=== PATIENT | male | born 1995 | race Native Hawaiian/Other Pacific Islander ===

== ENCOUNTER 2018-09-14 21:47 | Emergency (ER) | payer OTHER ==
[2018-09-14 22:17] LABS: Basophils # (Auto) 0.1 K/mm3 (0.0-0.1); Basophils % (Auto) 1.3 % (0.0-1.8); Eosinophils # (Auto) 0.3 K/mm3 (0.0-0.4); Eosinophils % (Auto) 2.8 % (0.0-4.3); Hematocrit 42.8 % (35.5-45.6); Hemoglobin 14.9 gm/dl (11.8-15.2); Lymphocytes # (Auto) 3.9 K/mm3 (1.2-5.4); Mean Corpuscular HGB Conc 35 % (32-34); Mean Corpuscular Volume 90 fl (84-94); Monocytes # (Auto) 0.6 K/mm3 (0.0-0.8); Monocytes % (Auto) 6.3 % (0.0-7.3); Platelet Count 285 K/mm3 (140-440); Red Blood Count 4.75 M/mm3 (3.65-5.03); Red Cell Distribution Width 13.4 % (13.2-15.2)
[2018-09-14 22:25] LABS: BUN/Creatinine Ratio 16; Blood Urea Nitrogen 13 mg/dL (9-20); Calcium 10.1 mg/dL (8.4-10.2); Hemolysis Index 6
[2018-09-14 22:36] LABS: Bilirubin,Urine NEG (Negative); Blood,Urine NEG (Negative); Color,Urine Yellow (Yellow); Mucus,Urine FEW /HPF; Protein,Urine <15 mg/dL mg/dL (Negative); Urobilinogen,Urine < 2.0 mg/dL (<2.0); WBC,Urine < 1.0 /HPF (0.0-6.0)
[2018-09-15] MEDS ORDERED: ZOFRAN ODT PO ONE (00:21)
[2018-09-15] MEDS ORDERED: TORADOL IM ONE (00:21)
--- NOTE | 2018-09-15 00:21 | Emergency Department Report ---
ED Abdominal Pain HPI - General Chief Complaint: Abdominal Pain Stated Complaint: HERNIA/NAUSEA/HEADACHE Time Seen by Provider: 09/15/18 00:15 Source: patient Mode of arrival: Ambulatory Limitations: No Limitations - History of Present Illness Initial Comments: Pt is a 23 yo male who presents to the ED with c/o LLQ abdominal pain and left flank pain that began in July 2018. The patient states he has had diarrhea for the last two weeks. He states he began having N/V today. The patient denies any fever, urinary sx, hematochezia, hematemesis. He is able to tolerate PO intake. He has not seen anyone for this abdominal pain. He has taken aleve for t he pain with some relief. Severity scale (0 -10): 6 - Related Data Previous Rx's Medication Instructions Recorded Last Taken Type Dicyclomine [Bentyl] 20 mg PO QID #20 tablet 09/15/18 Unknown Rx Ondansetron [Zofran Odt] 4 mg PO Q8HR #10 tab.rapdis 09/15/18 Unknown Rx Allergies Allergy/AdvReac Type Severity Reaction Status Date / Time No Known Allergies Allergy Unverified 09/14/18 21:49 ED Review of Systems ROS: Stated complaint: HERNIA/NAUSEA/HEADACHE Other details as noted in HPI Comment: All other systems reviewed and negative ED Past Medical Hx - Past Medical History Previous Medical History?: No - Surgical History Past Surgical History?: Yes Additional Surgical History: sinus surgery - Social History Smoking Status: Current Some Day Smoker Substance Use Type: None - Medications Home Medications: Home Medications Medication Instructions Recorded Confirmed Last Taken Type Dicyclomine [Bentyl] 20 mg PO QID #20 tablet 09/15/18 Unknown Rx Ondansetron [Zofran Odt] 4 mg PO Q8HR #10 tab.rapdis 09/15/18 Unknown Rx ED Physical Exam - General Limitations: No Limitations General appearance: alert, in no apparent distress - Head Head exam: Present: atraumatic, normocephalic - Eye Eye exam: Present: normal appearance - ENT ENT exam: Present: mucous membranes moist - Respiratory Respiratory exam: Present: normal lung sounds bilaterally. Absent: respiratory distress, wheezes, rales, rhonchi, stridor, chest wall tenderness, accessory muscle use, decreased breath sounds, prolonged expiratory - Cardiovascular Cardiovascular Exam: Present: regular rate, normal rhythm, normal heart sounds. Absent: systolic murmur, rubs, gallop - GI/Abdominal GI/Abdominal exam: Present: soft, tenderness (mild LLQ), normal bowel sounds. Absent: distended, guarding, rebound, rigid, mass, pulsatile mass, hernia - Back Exam Back exam: Present: normal inspection, full ROM, CVA tenderness (L) (mild TTP ). Absent: vertebral tenderness - Neurological Exam Neurological exam: Present: alert, oriented X3 - Psychiatric Psychiatric exam: Present: normal affect, normal mood ED Course Vital Signs 09/14/18 09/15/18 21:54 04:07 Temperature 98.7 F 98.3 F Pulse Rate 104 H 75 Respiratory 16 14 Rate Blood Pressure 157/96 Blood Pressure 128/81 [Right] O2 Sat by Pulse 97 100 Oximetry - Reevaluation(s) Reevaluation #1: 09/15/18 04:28 called [address] report, still waiting for report to be read. ED Medical Decision Making - Lab Data Result diagrams: 09/14/18 22:02 09/14/18 22:02 Laboratory Results - last 24 hr 09/14/18 09/14/18 09/14/18 22:02 22:02 22:22 WBC 10.3 RBC 4.75 Hgb 14.9 Hct 42.8 MCV 90 MCH 31 MCHC 35 H RDW 13.4 Plt Count 285 Lymph % (Auto) 38.0 H [place] % (Auto) 6.3 Eos % (Auto) 2.8 Baso % (Auto) 1.3 Lymph # 3.9 [place] # 0.6 Eos # 0.3 Baso # 0.1 Seg Neutrophils % 51.6 Seg Neutrophils # 5.3 Sodium 142 Potassium 3.6 Chloride 100.7 Carbon Dioxide 28 Anion Gap 17 BUN 13 Creatinine 0.8 Estimated GFR > 60 BUN/Creatinine Ratio 16 Glucose 136 H Calcium 10.1 Urine Color Yellow Urine Turbidity Clear Urine pH 6.0 Ur Specific Protem 1.027 Urine Protein <15 mg/dl Urine Glucose (UA) Neg Urine Ketones Neg Urine Blood Neg Urine Nitrite Neg Urine Bilirubin Neg Urine Urobilinogen < 2.0 Ur Leukocyte Esterase Neg Urine WBC (Auto) < 1.0 Urine RBC (Auto) 2.0 Urine Mucus Few - Radiology Data Radiology results: report reviewed PROCEDURE: CT ABDOMEN PELVIS WO CON HISTORY: left flank, LLQ FINDINGS: Unenhanced CT of the abdomen and pelvis was performed. The heart is top normal in size. The lung bases appear clear. ABDOMEN: There is fatty infiltration of the liver without focal hepatic lesion. The spleen, adrenal glands, pancreas, gallbladder are unremarkable. There is no renal or ureteral calculus. There is no small or large bowel obstruction. Pelvis: There is a normal appendix. There is no evidence of diverticulitis. The prostate and urinary bladder within normal limits. There is no free air. IMPRESSION: ABDOMEN: Fatty infiltration of the liver No renal or ureteral calculus Pelvis: Normal appendix This document is electronically signed by Hermes Fernández MD., September 15 2018 04:34:01 AM ET - Medical Decision Making Pt is a 23 yo male who presents with LLQ and left flank pain x1 month. He has associated diarrhea x2 weeks. He began having N/V today. VSS. WBC is normal, urine is normal. CT abd/pevlis with fatty liver otherwise normal. Will have pt follow up with GI. Will give pt zofran and bentyl. Pt also needs to follow up with PCP in the next 2-3 days. Glucose is mildly elevated discussed with pt need to follow up with primary care doctor. Advised pt to follow up with GI doctor for abdominal pain. Critical care attestation.: If time is entered above; I have spent that time in minutes in the direct care of this critically ill patient, excluding procedure time. ED Disposition Clinical Impression: Fatty liver Abdominal pain Qualifiers: Abdominal location: left lower quadrant Qualified Code(s): R10.32 - Left lower quadrant pain Disposition: - TO HOME OR SELFCARE Is pt being admited?: No Does the pt Need Aspirin: No Condition: Stable Instructions: Acute Abdominal Pain (ED), Non-Alcoholic Fatty Liver Disease (ED) Additional Instructions: Follow up with GI doctor and primary care doctor in the next 2-3 days. If new or worsening symptoms may return to the ED. Prescriptions: Dicyclomine [Bentyl] 20 mg PO QID #20 tablet Ondansetron [Zofran Odt] 4 mg PO Q8HR #10 tab.rapdis Referrals: PRIMARY CAREMD [Primary Care Provider] - 3-5 Days [facility] [Provider Group] - 3-5 Days Time of Disposition: 04:40 Print Language: [place]
[2018-09-15] MEDS ORDERED: ZOFRAN ONE (01:33)
[2018-09-15] MEDS ORDERED: ZOFRAN IM ONE (01:36)
[2018-09-15 04:07] VITALS: BP 128/81
--- NOTE | 2018-09-15 04:36 | Cat Scan Report ---
PROCEDURE: CT ABDOMEN PELVIS WO CON HISTORY: left flank, LLQ FINDINGS: Unenhanced CT of the abdomen and pelvis was performed. The heart is top normal in size. The lung bases appear clear. ABDOMEN: There is fatty infiltration of the liver without focal hepatic lesion. The spleen, adrenal glands, pa ncreas, gallbladder are unremarkable. There is no renal or ureteral calculus. There is no small or la rge bowel obstruction. Pelvis: There is a normal appendix. There is no evidence of diverticulitis. The prostate and urinary bladder within normal limits. There is no free air. IMPRESSION: ABDOMEN: Fatty infiltration of the liver No renal or ureteral calculus Pelvis: Normal appendix This document is electronically signed by Hermes Fernández MD., September 15 2018 04:34:01 AM ET
== END 2018-09-15 04:51 | disposition home or self-care (01) ==
LOC: ED 21:47
DX: K76.0 Fatty (change of) liver, not elsewhere classified (principal); R10.32 Left lower quadrant pain; R11.2 Nausea with vomiting, unspecified; R19.7 Diarrhea, unspecified; F17.200 Nicotine dependence, unspecified, uncomplicated
CPT/HCPCS: 36415; 74176; 80048; 81001; 85025; 96372; 99284; J1885; J2405; Q0162